=== PATIENT | male | born 1970 | race Caucasian/White ===

== ENCOUNTER → 2024-03-11 10:55 | Outpatient (BNVA) | payer OTHER, BC, SELFPAY | PROVIDERS: Visit Provider Orthopaedic Surgery | DX: M54.2 Cervicalgia (principal); M54.9 Dorsalgia, unspecified | CPT/HCPCS: 72050; 72110 ==

== ENCOUNTER 2024-05-01 08:15 | Outpatient (CLI) | payer OTHER, SELFPAY ==
--- NOTE | 2024-05-01 08:15 | USCV_ITS ---
Zaki Anders Age: 53 Gender: M : 1970 Exam Date: 05/01/2024 08:24 Ordering Phys: Kurtis Schneider MD Technologist: MICHELLE [place] [facility] [place]: S[place] Risk Factors: Previous Vascular Surgery: Right Brachial BP: / Left Brachial BP: / Right Left Velocity (cm/s) Spectral Plaque Velocity (cm/s) Spectral Plaque Syst/Diast Broadening Syst/Diast Broadening 120.30/32.70 Prox CCA 117.50/ 27.60 105.70/25.40 Mid CCA 110.50/ 28.10 91.10/ 27.20 Distal CCA 95.10 / 30.70 42.50/ 14.10 Prox ICA 53.80 / 19.40 60.20/ 23.40 Mid ICA 70.80 / 26.40 58.50/ 24.80 Distal ICA 75.40 / 33.20 94.60 ECA 66.10 0.70 ICA/CCA 0.80 Antegrade Vertebral Antegrade 50.90/ 14.90 cm/s 46.10/ 13.90 cm/s Tri Subclavian Tri 92.10 61.50 CONCLUSIONS Right ICA stenosis <50%. Left ICA stenosis <50%. Normal antegrade Doppler flow noted in the right vertebral artery. Normal antegrade Doppler flow noted in the left vertebral artery. Justin Guerrero MD (Electronically Signed) Final Date: 01 May 2024 09:26 S
== END 2024-05-01 08:16 | disposition home or self-care (01) ==
PROVIDERS: Visit Provider Psychiatry & Neurology Neurology
DX: R55 Syncope and collapse (principal)
CPT/HCPCS: 93880

== ENCOUNTER → 2024-06-03 07:57 | Outpatient (BNVA) | payer OTHER, SELFPAY | PROVIDERS: Referring Provider Orthopaedic Surgery; Visit Provider Student in an Organized Health Care Education/Training Program | DX: G56.03 Carpal tunnel syndrome, bilateral upper limbs (principal); M25.522 Pain in left elbow | CPT/HCPCS: 73080 ==

== ENCOUNTER 2024-07-23 08:03 | Day surgery (SDC) | payer OTHER, SELFPAY ==
[2024-07-23] VITALS (9 sets, daily range): BP systolic 108–131; BP diastolic 64–90; PULSE 56–67; RESP 16–18; TEMP 36.1–36.6; O2SAT 94–97; BMI 25.7
[2024-07-23] MEDS: sodium chloride 0.9% 1,000 ML 30 ML IV (09:40)
[2024-07-23] MEDS: acetaminophen 1,000 MG/100 ML PIGGYBACK 400 MG IV (09:40)
[2024-07-23] MEDS: ketorolac 30 mg/mL INJ IVP (09:41)
--- NOTE | 2024-07-23 09:53 | P.ANESASSM_ITS ---
Pre-Anesthetic Assessment Height/Weight: Height 1.83 m Weight 86.183 kg Temp Pulse Resp BP Pulse Ox O2 Del Method 97.8 F 62 18 121/78 96 Room Air 07/23/24 09:27 07/23/24 09:27 07/23/24 09:27 07/23/24 09:27 07/23/24 09:27 07/23/24 09:34 Operation Date: 07/23/24 09:15 Proposed Procedures p Carpal Tunnel Release(Left) - Dakota [place], DO s Cubital Tunnel Release(Left) - Dakota Adolph, DO s Ulnar Nerve Transposition(Left) - Dakota Adolph, DO Familial anesthetic complications: None Was Beta Krystle taken within 24 hours: N/A Was Clonidine taken within 24 hours: N/A Last intake: Intake Last Liquid Date 07/22/24 Last Liquid Time 22:00 Last Solid Date 07/22/24 Last Solid Time 19:00 Social No alcohol and No tobacco Exam alert, oriented x 3, clear to auscultation bilaterally and regular rate & rhythm Airway Mallampati: Class II Dentition: chipped (1 broken/almost missing) Anesthetic Plan ASA status: 1 Anesthesia: General Risk of > 500 ml blood loss (7ml/kg in children): No Medications/Allergies Home Medications Medication Instructions Recorded Confirmed Last Taken Type hydrocodone 5 mg-acetaminophen 325 1 tab PO Q6H PRN pain 5 days #20 07/23/24 Unknown Rx mg tablet tabs ondansetron 4 mg disintegrating 4 mg PO Q8H PRN nausea and 07/23/24 Unknown Rx tablet vomiting 3 days #9 tabs Allergies Allergy/AdvReac Type Severity Reaction Status Date / Time No Known Allergies Allergy Verified 07/22/24 12:19 Current Medications Generic Name Dose Route Start Last Admin Trade Name Freq PRN Reason Stop Dose Admin Sodium Chloride 1,000 mls @ 30 mls/hr 07/23/24 08:15 07/23/24 09:40 Sodium Chloride 0.9% IV 07/24/24 08:14 30 mls/hr .Q24H BRIANNA Administration PFSH Anesthesia Social History Smoking and tobacco/nicotine status: never used tobacco/nicotine Data Anesthesia Cardiac Studies: No Data to Display
--- NOTE | 2024-07-23 10:12 | P.HP_ITS ---
Same Day Surgery H&P Indication for Procedure/HPI DATE OF PROCEDURE: July 23, 2024 CHIEF COMPLAINT/INDICATIONFOR SURGICAL PROCEDURE: Left carpal tunnel syndrome, left cubital tunnel syndrome PREOP DIAGNOSIS: Left carpal tunnel syndrome left cubital tunnel syndrome PLANNED PROCEDURE: Operation Date: 07/23/24 09:15 Proposed Procedures p Carpal Tunnel Release(Left) - Dakota Dewitt, DO s Cubital Tunnel Release(Left) - Dakota Dewitt, DO s Ulnar Nerve Transposition(Left) - Dakota Dewitt, DO Medications/Allergies* Allergies/Adverse Reactions Allergy/AdvReac Type Severity Reaction Status Date / Time No Known Allergies Allergy Verified 07/22/24 12:19 Current Medications: Generic Name Dose Route Start Last Admin Trade Name Freq PRN Reason Stop Dose Admin Sodium Chloride 1,000 mls @ 30 mls/hr 07/23/24 08:15 07/23/24 09:40 Sodium Chloride 0.9% IV 07/24/24 08:14 30 mls/hr .Q24H BRIANNA Administration Pertinent History/Comorbid Conditions* Social History Smoking and tobacco/nicotine status: never used tobacco/nicotine Pertinent Exam Findings alert, oriented x 3, operative site marked and procedure specific exam findings Please refer to detailed orthopedic examination on 06/02/2024 detailed below: Bilateral upper extremity examination: Examination bilateral upper extremity demonstrates negative Spurling, no radiculopathy with C-spine range of motion Negative Tinel's of the bilateral shoulders Positive Tinel's to the left elbow as well as positive elbow flexion test Intrinsic weakness noted, no significant atrophy appreciated Positive Tinel's bilateral wrists Positive Phalen's bilateral Positive median nerve compression test bilateral wrists Thenar weakness noted bilaterally but no significant atrophy Recommendations Surgery/Procedure today Other Plans: Plan proceed to the OR today for left carpal tunnel release, left cubital tunnel release with possible nerve transposition. Patient understands the ins and outs of procedure the risk benefits complication alternatives to surgery through shared decision making elected proceed with surgical intervention. All questions answered at this time. Coding Level of Care Code Acute Code for Mak Fwshannon
[2024-07-23] MEDS: ceFAZolin 2,000 MG in sodium chloride 0.9% (plus) 50 ML 100 MG IV (10:15)
[2024-07-23] MEDS: lidocaine-epi 1% 20 mL INJ 10 ML INJECTION (10:43)
[2024-07-23] MEDS: ROPivacaine 0.5% SDV 30 mL 50 MG INJECTION (10:43)
--- NOTE | 2024-07-23 11:27 | PM.OP ---
Operative Report Date of procedure: July 23, 2024 Surgeon: Dakota Farfan DO Bungy Jump Master: Devante Farfan PA-C: PA was necessary for assistance in this case with hand positioning to execute the procedure, retraction and protection of neurovascular structures as well as to assist with wound closure and dressing application. Procedure: Preoperative diagnosis left carpal tunnel syndrome, left cubital tunnel syndrome Postop Diagnosis: Same Procedure done: Left carpal tunnel release Left?cubital tunnel tunnel release (ulnar nerve decompression at elbow) Surgeon: Dakota Farfan DO Estimated blood loss: 10 mL Tourniquet? 19 minutes IV fluids: 600 mL Complications: None Findings: See operative report narrative Condition: stable Disposition: same day Brief History: Patient's been seen and worked up in the outpatient setting and findings consistent with preoperative diagnosis.? Patient has Left carpal tunnel syndrome as well as Left?cubital tunnel syndrome which has been worked up in the outpatient setting has physical exam findings consistent with this as well as confirmatory nerve conduction/EMG nerve conduction study consistent with diagnosis.? Patient's failed conservative treatment.? As result through shared decision making agreed to proceed with? Left carpal tunnel and Left?cubital tunnel release with possible ulnar nerve transposition we talked about treatment options as far as nonoperative and operative intervention.? Understands risk benefits complication alternatives surgical nonsurgical treatment options.? Understanding his risks he agrees to proceed with surgical intervention. Understanding these risks he agrees to proceed with surgery.? Consent obtained in office. Procedure: Patient seen evaluate in the preoperative holding area.? Consent was reviewed and signed with patient.? Correct extremity marked.? Patient seen evaluated by anesthesia department once cleared for surgery was then taken back to the operative suite placed in supine position all bony prominences well-padded patient properly secured to bed.? Left upper extremity placed onto armboard.? Nonsterile tourniquet applied Left upper arm.? Patient then underwent anesthesia per the anesthesia department.? Patient's Left upper extremity was then prepped and draped in standard orthopedic fashion.? Final timeout performed.? Patient received appropriate preoperative antibiotics. Esmarch was used exsanguinate the Left upper extremity.? Tourniquet was insufflated to 250 mmHg. I started with the carpal tunnel release first.? I made a standard open carpal tunnel release starting with the distal most extent in the palm at the Rod's cardinal line and the incision line was made in line with the fourth ray and ended just distal to the wrist crease.? Sharp scalpel incision was made through skin and subcutaneous tissue I then utilizing self retainer then began to dissect with dissection scissors split longitudinally the palmar fascia.? Next I then utilizing my printing bindery assistant Tom retractors subsequently utilizing scalpel feathered through the palmaris brevis as well as through the transverse carpal ligament distally.? Once I encountered the floor of the transverse carpal ligament and entered into the carpal tunnel I then switched to dissection scissors.? Carefully released the distal extent of the transverse carpal ligament to the palmar fat.? Care was to protect the recurrent branch and not injured this during this part of the case.? Next I then placed a [place]oomis underneath the transverse carpal ligament proximally to protect the nerve in the carpal tunnel contents.? And then I subsequently under loupe magnification utilize my dissection scissors to release the transverse carpal ligament into the antebrachial fascia under direct visualization with care to keep my scissors with a curved ulnarly away from the palmar cutaneous branch.? The transverse carpal was then completely decompressed proximally and a [place] was then placed both distally and proximally throughout the carpal tunnel and had complete decompression of the nerve.? The nerve did appear to have hourglass shape as it went through the carpal tunnel.? With significant irritation noted around the nerve.? No masses were noted within the contents of the carpal tunnel.? This completed the carpal tunnel release and then I subsequently irrigated the wound bed and placed a wet Ray-Veronica into the incision for later closure. Next marked out the landmarks of the Left elbow of the medial epicondyle and olecranon and made a curvilinear incision following the course of the ulnar nerve at the medial aspect of the elbow.? Sharp scalpel incision was made through skin and subcutaneous tissue.? Next I switched to Littler dissection scissors and spread in plane of the medial antebrachial cutaneous nerve branching which was protected throughout this part of the dissection.? Then I directly came down over the fascia and identified the 2 heads of the FCU fascia and split this Left in the middle and subsequently identified my ulnar nerve distally.? This was then completely released distally under direct visualization and loupe magnification.? Once the nerve was then identified I then subsequently tracked this proximally and released this through Sorenson's ligament as well as complete decompression of the nerve proximally all the way past the intermuscular septum.? The nerve was completely released and decompressed both proximally and distally.? Ulnar nerve neurolysis performed and completed both proximally and distally with dissection scissors.? I then took the elbow through range of motion and there was no instability or subluxating of the ulnar nerve.? This completed?cubital tunnel release.? ?Next the wound bed was thoroughly irrigated.? Tourniquet was deflated.? Hemostasis was satisfactory at the?cubital tunnel release surgery site. I then inspected the carpal tunnel incision and this was found to have satisfactory hemostasis and all this was maintained through bipolar electrocautery.? At this point time I sequentially closed?cubital tunnel site with 3-0 Vicryl suture in a running horizontal mattress nylon stitch.? ? The carpal tunnel release surgery was then closed in standard interrupted mattress fashion.? Dressing was Xeroform 4 x 4's ABD Curlex soft roll and an Alex wrap has a bulky soft dressing. Patient was then awakened from anesthesia and taken to PACU in stable condition. Disposition: Patient taken to PACU in stable condition recovering well.? Patient will receive appropriate discharge instructions as well as pain medication postoperatively.? We will follow-up with me in the office in 2 weeks.? Patient understands agrees with current plan.? All questions answered.? Patient understands if any questions or concerns and contact the office for follow-up appointment..
--- NOTE | 2024-07-23 11:43 | W.PM.BPON ---
Date of Procedure: [July 23, 2024] Surgeon: [Dr. Farfan DO] Mechanical Press Operator(s): [Devante Farfan PA-C] Procedure(s) performed: [Left carpal tunnel release left cubital tunnel release] Findings of the procedure(s): [Left carpal tunnel syndrome and left cubital tunnel syndrome] Estimated blood loss: [10 mL] Specimen(s) removed: [N/A] Post-operative diagnosis: [Left carpal tunnel syndrome and left cubital tunnel syndrome]
--- NOTE | 2024-07-23 11:45 | PM.PACU ---
PACU note Narrative: Patient is a 53-year-old male just underwent a left carpal tunnel release left cubital tunnel release. Patient transferred to PACU in stable condition. Pain is well controlled. Dressing on hand is dry and in place. Patient's fingers are warm and well-perfused. Patient can wiggle fingers. normal cap refill under 2 seconds. Patient has normal elbow range of motion. sensation to hand intact. Exam: awake Disposition: discharged
--- NOTE | 2024-07-23 12:45 | ANE.PACU2 ---
Inpatient post-anesthesia follow up: Airway intact: Yes Vital signs: Temperature 97.1 F Pulse Rate 65 Respiratory Rate 18 Blood Pressure 131/90 Pulse Oximetry 96 Oxygen Delivery Me thod Room Air Oxygen Flow Rate 8 Fraction of Inspir ed Oxygen Hydration adequate: Yes Nausea and vomiting: No Pain level: 1 Mental status: Baseline
== END 2024-07-23 12:44 | disposition home or self-care (01) ==
PROVIDERS: Visit Provider Student in an Organized Health Care Education/Training Program
PROC: (CPT 64721; principal; 2024-07-23 09:15)
PROC: (CPT 64718; 2024-07-23 09:15)
DX: G56.02 Carpal tunnel syndrome, left upper limb (principal); G56.22 Lesion of ulnar nerve, left upper limb
CPT/HCPCS: 64718; 64721; J0131; J0690; J1170; J1885; J2250; J2704; J2795; J3010; J7030